=== PATIENT | female | born 1985 | race Two or more races ===

== ENCOUNTER 2021-07-12 13:49 | Emergency (ER) | payer OTHER ==
[~2021-07-12] VITALS: Ht 152.4 cm; Wt 59.4 kg
[2021-07-12 13:49] VITALS: BP 141/93
[2021-07-12] MEDS ORDERED: AZIT250T8 PO (16:39)
[2021-07-12] MEDS ORDERED: METH4PAK PO (16:39)
== END 2021-07-12 16:52 | disposition home or self-care (01) ==
LOC: ER 13:49
DX: J03.90 Acute tonsillitis, unspecified (principal); G43.909 Migraine, unspecified, not intractable, without status migrainosus; Z20.822 Contact with and (suspected) exposure to COVID-19; Z79.2 Long term (current) use of antibiotics; Z79.899 Other long term (current) drug therapy
CPT/HCPCS: 36415; 71045; 81025